=== PATIENT | female | born 1985 | race Caucasian/White ===

== ENCOUNTER 2016-12-17 23:17 | Outpatient (CLI) | payer OTHER ==
[~2016-12-17] VITALS: Ht 152.4 cm; Wt 65.9 kg
[~2016-12-17 23:17] MED LIST: DOXYCYCLINE 10100 MG PO; MOTRIN 600600 MG/TAB PO; NKDA; NORCO 325 MG-51 TAB PO; PRENATAL1 TA1 PO
[2016-12-17 23:53] VITALS: BP 110/65; PULSE 113; TEMP 99.1
[2016-12-18] VITALS: BP 110/65; PULSE 113; TEMP 99.1
[2016-12-18] MEDS ORDERED: PEPTO BISMOL262 MG PO (00:10)
[2016-12-18] MEDS ORDERED: IMODIUM AD1 MG/5 ML PO (00:12)
[2016-12-18 00:21] VITALS: BP 94/54; PULSE 89; TEMP 98.8
== END 2016-12-18 00:32 | disposition home or self-care (01) ==
LOC: LDRO 23:17
DX: O26.892 Other specified pregnancy related conditions, second trimester (principal); R10.30 Lower abdominal pain, unspecified; Z3A.25 25 weeks gestation of pregnancy

== ENCOUNTER 2017-02-11 12:51 | Inpatient (IN) | payer OTHER ==
[~2017-02-11] VITALS: Ht 152.4 cm; Wt 70.9 kg
[~2017-02-11 12:51] MED LIST changes: +IMODIUM AD1 MG/5 ML PO; +PEPTO BISMOL262 MG PO
[2017-03-25] VITALS (14 sets, daily range): BP systolic 80–124; BP diastolic 41–80; PULSE 59–99; TEMP 97.6–97.8
[2017-03-25 09:34] LABS: BASO % 0.2 % (0.0-2.0); EOS # 0.1 (0.0-0.7); EOS % 1.3 % (0-4.0); GRAN # 6.9 (1.4-6.5); HEMOGLOBIN 12.2 g/dl (12.5-16.0); LYMPH # 1.8 (1.2-3.4); LYMPH % 18.5 % (20.0-51.0); MEAN CELL VOLUME 86 fl (80.0-100.0); MEAN CORPUSCULAR HEMOGLOBIN 29 pg (27.0-31.0); MEAN CORPUSCULAR HGB CONC 34 g/dl (33.0-37.0); MEAN PLATELET VOLUME 10.5 fl (7.4-10.4); MONO # 0.7 (0.1-0.6); MONO % 7.3 % (1.7-9.3); PLATELET COUNT 194 K/mm3 (130-400); RED BLOOD COUNT 4.18 M/mm3 (4.10-5.30); REDCELL DISTRIBUTION WIDTH-CV 13.5 % (11.5-14.5); WHITE BLOOD COUNT 9.6 K/mm3 (4.8-10.8)
[2017-03-25 09:38] LABS: HEMATOCRIT 35.9 % (37.0-47.0)
[2017-03-26 00:15] VITALS: BP 108/56; PULSE 68
[2017-03-26 04:00] VITALS: BP 120/54; PULSE 61; TEMP 97.6
[2017-03-26 05:43] LABS: HEMATOCRIT 30.8 % (37.0-47.0); HEMOGLOBIN 10.2 g/dl (12.5-16.0)
[2017-03-26 07:36] VITALS: BP 110/62; PULSE 78; TEMP 97.1
[2017-03-26 10:51] LABS: PH 5 (5-8); SQUAMOUS EPITHELIAL 0-2 /hpf; URINE APPEARANCE Hazy; URINE BACTERIA None Seen /hpf; URINE BILIRUBIN Negative (NEGATIVE); URINE BLOOD 3+ (NEGATIVE); URINE COLOR Yellow; URINE GLUCOSE Negative (NEGATIVE); URINE KETONE 2+ (NEGATIVE); URINE RBC >50 /hpf; URINE UROBILINOGEN Negative (NEGATIVE); URINE WBC None Seen /hpf
[2017-03-26 12:20] VITALS: BP 106/53; PULSE 60; TEMP 97.7
[2017-03-26 16:15] VITALS: BP 85/43; PULSE 57; TEMP 97.6
[2017-03-26 19:40] VITALS: BP 103/56; PULSE 82; TEMP 98.3
[2017-03-27 07:27] VITALS: BP 105/63; PULSE 101; TEMP 98.3
[2017-03-27] MEDS ORDERED: MOTRIN 600600 MG/TAB PO (09:00)
[2017-03-27] MEDS ORDERED: NORCO 325 MG-51 TAB PO (09:01)
== END 2017-03-27 14:20 | disposition home or self-care (01) | DRG 766 ==
LOC: OB 03-25 08:58 → EDSTATUS 03-29 09:40 → LDRO 03-29 12:51
PROVIDERS: Obstetrics & Gynecology
PROC: 10D00Z1 Extraction of Products of Conception, Low, Open Approach (ICD-10-PCS; principal; 2017-03-25)
DX: O34.211 Maternal care for low transverse scar from previous cesarean delivery (principal); N85.8 Other specified noninflammatory disorders of uterus; O32.1XX0 Maternal care for breech presentation, not applicable or unspecified; O99.824 Streptococcus B carrier state complicating childbirth; O99.02 Anemia complicating childbirth; D64.9 Anemia, unspecified; Z3A.39 39 weeks gestation of pregnancy; Z37.0 Single live birth
CPT/HCPCS: J0690; J1885; J2175; J2270; J2370; J2405; J2550; J2590; J7120